=== PATIENT | male | born 1970 | race Caucasian/White ===

== ENCOUNTER 2018-04-22 12:21 | Day surgery (SDC) | payer OTHER ==
[2018-04-21 14:52] VITALS: BMI 29.4
[2018-04-22 13:24] LABS: ALBUMIN 4.4 g/dl (3.4-5.0); ALK PHOS 76 U/L (45-117); ANION GAP 6 (8-16); BILIRUBIN,TOTAL 1.2 mg/dL (0.2-1.0); BLOOD UREA NITROGEN 10 mg/dL (7-18); CALCIUM 9.1 mg/dL (8.5-10.1); CHLORIDE 101 mmol/L (98-107); CO2 30 mmol/L (21-32); GLUCOSE,RANDOM 91 mg/dL (74-106); POTASSIUM 4.3 mmol/L (3.5-5.1); SGOT/AST 26 U/L (15-37); SGPT/ALT 44 U/L (12-78); SODIUM 137 mmol/L (136-145); TOT PROT 7.9 g/dl (6.4-8.2)
[2018-04-22] MEDS ORDERED: PROPOFOL 20 ML ONE ×6 (13:45)
[2018-04-22 14:53] VITALS: TEMP 97.8
[2018-04-22 16:01] LABS: BILIRUBIN,DIRECT 0.2 mg/dL (0.0-0.2)
[2018-04-22 16:12] VITALS: BP 120/69; PULSE 68
[2018-04-24 06:36] LABS: HBSAG SCREEN Negative (Negative); HEP B CORE AB, TOT Negative (Negative)
--- NOTE | 2018-04-26 12:39 | PATH ---
Surgical Pathology Report Patient Name: JAMESON HOLT [facility]. Rec. #: [id number] /Age/Gender: 1970 (Age: 47) / M Account: [id number] Location: U-ENDOSCOPY Taken: 04/22/2018 Received: 04/25/2018 Reported: 04/26/2018 Physicians: Sai Carlisle D.O. Specimen(s) Received A: BX ANTRUM/GASTRULA B: BX BODY/ANGULARIS C: BX GASTRIC POLYP D: BX DISTAL ESOPHAGUS E: BX RIGHT COLON POLYP F: RECTAL POLYP Clinical History GERD, rectal bleeding Postoperative diagnosis: Distal esophagitis, gastritis, gastric polyp, hemorrhage, diverticulosis, colon polyps Final Diagnosis A. STOMACH, ANTRUM, BIOPSY: GASTRIC ANTRAL MUCOSA WITH MILD CHRONIC GASTRITIS. IMMUNOHISTOCHEMICAL STAIN FOR H. PYLORI IS NEGATIVE. B. STOMACH, BODY/ANGULARIS, BIOPSY: GASTRIC BODY MUCOSA WITH MILD CHRONIC GASTRITIS. IMMUNOHISTOCHEMICAL STAIN FOR H. PYLORI IS NEGATIVE. C. STOMACH, POLYP, BIOPSY: POLYPOID GASTRIC BODY MUCOSA WITH MILD CHRONIC GASTRITIS. IMMUNOHISTOCHEMICAL STAIN FOR H. PYLORI IS NEGATIVE. D. DISTAL ESOPHAGUS, BIOPSY: SQUAMOUS MUCOSA WITH MILD CHRONIC INFLAMMATION AND BASAL CELL HYPERPLASIA CONSISTENT WITH MILD REFLUX TYPE ESOPHAGITIS. E. COLON, RIGHT, POLYP, BIOPSY: TUBULAR ADENOMA. F. RECTUM, POLYP, BIOPSY: COLONIC MUCOSA WITH SUPERFICIAL HYPERPLASTIC FEATURES. Electronically Signed Diane Smiht M.D. Gross Description A. Received in formalin, labeled "biopsy antrum-gastritis" are 2 rodgers, irregular portions of soft tissue measuring 0.3 and 0.6 cm. in greatest dimension. The specimens are submitted in toto in one cassette. B. Received in formalin, labeled "biopsy angularis/body" are 3 rodgers, irregular portions of soft tissue ranging from 0.2-0.3 cm. in greatest dimension. The specimens are submitted in toto in one cassette. C. Received in formalin, labeled "biopsy gastric polyp" is a rodgers, irregular portion of soft tissue measuring 0.5 cm. in greatest dimension. The specimen is submitted in toto in one cassette. D. Received in formalin, labeled "biopsy distal esophagus" is a rodgers, irregular portion of soft tissue measuring 0.3 cm. in greatest dimension. The specimen is submitted in toto in one cassette. E. Received in formalin, labeled "biopsy right colon polyp" is a rodgers, irregular portion of soft tissue measuring 0.2 cm. in greatest dimension. The specimen is submitted in toto in one cassette. F. Received in formalin, labeled "biopsy rectal polyp" is a rodgers, irregular portion of soft tissue measuring 0.3 cm. in greatest dimension. The specimen is submitted in toto in one cassette. 04/25/2018 [facility]04/25/2018
== END 2018-04-22 15:57 | disposition home or self-care (01) ==
LOC: JASU-ENDO 12:21
PROVIDERS: ATTEND Internal Medicine Gastroenterology
PROC: 0DBP8ZX Excision of Rectum, Via Natural or Artificial Opening Endoscopic, Diagnostic (ICD-10-PCS; 2018-04-22)
PROC: 0DB38ZX Excision of Lower Esophagus, Via Natural or Artificial Opening Endoscopic, Diagnostic (ICD-10-PCS; 2018-04-22)
PROC: 0DB68ZX Excision of Stomach, Via Natural or Artificial Opening Endoscopic, Diagnostic (ICD-10-PCS; 2018-04-22)
PROC: 0DBF8ZX Excision of Right Large Intestine, Via Natural or Artificial Opening Endoscopic, Diagnostic (ICD-10-PCS; principal; 2018-04-22 13:00)
DX: K21.0 Gastro-esophageal reflux disease with esophagitis (principal); K31.7 Polyp of stomach and duodenum; K29.70 Gastritis, unspecified, without bleeding; K57.30 Diverticulosis of large intestine without perforation or abscess without bleeding; K63.5 Polyp of colon; K62.1 Rectal polyp; K64.8 Other hemorrhoids
CPT/HCPCS: 36415; 80053; 82248; 86704; 86706; 86708; 86850; 86900; 86901; 87340; 88305-TC; 88342-TC